=== PATIENT | female | born 1960 | race Caucasian/White ===

== ENCOUNTER 2022-11-03 07:26 | Day surgery (SDC) | payer OTHER ==
[~2022-11-03] VITALS: Ht 152.4 cm; Wt 63.0 kg
[~2022-11-03 07:26] MED LIST: CINN500C15 PO; IBUP-1114 PO; MM S100C PO; ceFAZolin SOD 2 GM in IV 1 EA IV ONE
[2022-11-03] MEDS ORDERED: LR 1,000 ML IV SCH ×2 (07:35→11:20)
[2022-11-03] MEDS ORDERED: KETOROLAC 60MG 2ML VIAL As Ordered ONE (08:24)
[2022-11-03] MEDS ORDERED: ONDANSETRON 4MG 2ML VIAL As Ordered ONE (08:24)
[2022-11-03] MEDS ORDERED: LIDOCAINE 2% 100MG/5ML SDV (FOR ANES.) As Ordered ONE (08:24)
[2022-11-03] MEDS ORDERED: MIDAZOLAM INJ 2MG/2ML VIAL As Ordered ONE (08:24)
[2022-11-03] MEDS ORDERED: fentaNYL 100 MCG/2 ML INJECTION As Ordered ONE ×2 (08:24→09:47)
[2022-11-03] MEDS ORDERED: propofoL 200 MG/20 ML VIAL As Ordered ONE ×2 (08:24→09:55)
[2022-11-03] MEDS ORDERED: LIDOCAINE 2% MDV 20ML VIAL As Ordered ONE (08:56)
[2022-11-03] MEDS ORDERED: GENTAMICIN SULF 80MG/2ML VIAL As Ordered ONE (08:56)
[2022-11-03] MEDS ORDERED: ACETAMINOPHEN 1000MG 100ML IV BAG As Ordered ONE (09:45)
[2022-11-03] MEDS ORDERED: ONDANSETRON 4MG 2ML VIAL IV PRN (11:20)
[2022-11-03] MEDS ORDERED: fentaNYL 100 MCG/2 ML INJECTION IV PRN (11:20)
[2022-11-03] MEDS ORDERED: oxyCODONE 5MG TAB PO PRN (11:20)
[2022-11-03] MEDS ORDERED: HYDROMORPHONE HCL 0.5 MG/ 0.5 ML SYRINGE IV PRN (11:20)
[2022-11-03 12:27] VITALS: BP 140/88; TEMP 97.8; O2SAT 99
== END 2022-11-03 12:29 | disposition home or self-care (01) ==
LOC: M SDC 07:26
PROVIDERS: ATTEND Podiatrist
DX: M25.774 Osteophyte, right foot (principal); R06.83 Snoring
CPT/HCPCS: 28288; 73630; 88300; 97116; 97530; J0131; J0690; J1100; J1580; J1885; J2250; J2405; J3010

== ENCOUNTER → 2023-08-30 | Outpatient (CLI) | payer OTHER ==
[~2023-08-30] MED LIST changes: -ceFAZolin SOD 2 GM in IV 1 EA IV ONE
== END ==
LOC: M SOG 08:24
PROVIDERS: ATTEND Orthopaedic Surgery Hand Surgery
DX: M25.531 Pain in right wrist (principal)

== ENCOUNTER 2025-05-14 10:05 | Day surgery (SDC) | payer OTHER ==
[~2025-05-14] VITALS: Ht 154.9 cm; Wt 66.2 kg
[2025-05-14] MEDS: LIDOCAINE 3.5% 1 ML OPHTH TOPICAL GEL OU ONE (11:01)
[2025-05-14] MEDS ORDERED: LIDOCAINE 2% 100 MG/5 ML SDV (FOR ANES.) As Ordered ONE (11:38)
[2025-05-14] MEDS: LIDOCAINE 2% W/EPINEPHrine 20 ML VIAL **PRES FREE As Ordered ONE (12:01)
[2025-05-14] MEDS: TOBRADEX OPHTH OINT 3.5 GM As Ordered ONE (12:07)
[2025-05-14 12:15] VITALS: BP 147/85; TEMP 97.2; O2SAT 97
[2025-05-14] MEDS ORDERED: MIDAZOLAM INJ 2 MG/2 ML VIAL As Ordered ONE (12:17)
== END 2025-05-14 12:50 | disposition home or self-care (01) ==
LOC: M SDC 10:05
PROVIDERS: ATTEND Ophthalmology
DX: H02.831 Dermatochalasis of right upper eyelid (principal); H02.834 Dermatochalasis of left upper eyelid; Z87.891 Personal history of nicotine dependence; Z98.51 Tubal ligation status
CPT/HCPCS: 15822; 88300; J2250; J3010